=== PATIENT | male | born 1975 | race Caucasian/White ===

== ENCOUNTER 2020-09-17 06:09 | Emergency (ER) | payer OTHER, SELFPAY ==
[2020-09-17 06:25] VITALS: BP 120/84; PULSE 102; RESP 20; TEMP 37.7; O2SAT 98
[2020-09-17] MEDS: ACETAMINOPHEN 500 MG TABLET 1000 MG PO (06:35)
--- NOTE | 2020-09-17 06:38 | ED.FEVER ---
HPI - Fever General Chief Complaint: Fever Stated Complaint: chills, head pounding, boady aches, Chest hurts Source: patient Mode of arrival: ambulatory Limitations: no limitations History of Present Illness HPI Narrative: this is a 45-year-old gentleman that recently received his 2nd COVID vaccine injection and developed low-grade fever weakness chills, mild nonproductive cough no shortness of breath no nausea vomiting no headache no abdominal pain no dysuria no flank pain no chest pain or shortness of breath. MD elicited complaint: fever and weakness Onset (ago): day(s) Measured temperature: 37.7 C Context: other ( recent COVID vaccine shot) Exacerbating factors: nothing Relieving factors: acetaminophen Associated symptoms: chills and cough Related Data Home Medications Medication Instructions Recorded Confirmed bupropion HCl [Wellbutrin XL] 150 mg PO QAM 09/17/20 09/17/20 lisinopril 20 mg PO DAILY 09/17/20 09/17/20 Allergies Allergy/AdvReac Type Severity Reaction Status Date / Time No Known Allergies Allergy Verified 03/02/19 20:14 Review of Systems Review of Systems: All systems reviewed & are unremarkable except as noted in HPI and below [facility] Past Medical History Medical History (Updated 09/17/20 @ 06:44 by Jayme Dozier MD) HLD (hyperlipidemia) Exam Const: General: no acute distress and alert Orientation/consciousness: patient oriented x3 HENMT: Head: normal to inspection Eyes: Conjunctivae: conjunctivae normal Pupils: Equal, round and reactive pupils present Neck: Neck: normal visual inspection, no lymphadenopathy and no meningeal signs Chest: Chest palpation & inspection: normal inspection of the chest Resp: Effort & Inspection: normal respiratory effort Cardio: Rate: regular rate and tachycardic GI: GI Palp: Yes Soft to palpation Percussion: Yes normal to percussion Back/Spine/Pelvis: Back: no CVA tenderness Skin: General skin exam: normal color Rashes: no rashes Neuro: General: patient oriented x3, moves all extremities, no meningeal signs and no focal motor deficits Extrem: General: normal to inspection and no pedal edema Psych: Mental Status: mental status grossly normal Affect: normal affect Course COMPONENTS ENGINEER/PA Physician Supervision Patient with some fever, heart rate of 102, will add sap basis architect Tylenol and will give the patient bolus of 500mL normal saline. Vital Signs Vital signs: Vital Signs Temperature 37.7 C H 09/17/20 06:25 Pulse Rate 102 H 09/17/20 06:25 Respiratory Rate 20 09/17/20 06:25 Blood Pressure 120/84 09/17/20 06:25 Pulse Oximetry 98 09/17/20 06:25 Temperature 37.7 C H 09/17/20 06:25 Pulse Rate 102 H 09/17/20 06:25 Respiratory Rate 20 09/17/20 06:25 Blood Pressure 120/84 09/17/20 06:25 Pulse Oximetry 98 09/17/20 06:25 Critical Care Time Critical Care Time Critical Care Time: No Discharge Plan Discharge Clinical Impression: Fever and chills Patient Disposition: Home, Self-Care Condition: Stable Instructions: Antibiotic Form, Cold Symptoms (ED), Fever in Adults (ED) Additional Instructions: can take Tylenol extra-strength every 6 hours as needed for fever, drink plenty of water and follow-up with primary care physician if symptoms persist or worsen. Prescriptions: No Action lisinopril 20 mg tablet 20 mg PO DAILY RF: 0 bupropion HCl [Wellbutrin XL] 150 mg Tablet Extended Release 24 Hr 150 mg PO QAM RF: 0 Follow-up/Referrals: Nidia Meek MD [Primary Care Provider] - Time of Disposition: 06:44
[2020-09-17] MEDS: SODIUM CHLORIDE 0.9% IV 500 ML 999 ML IV CONT (06:43)
[2020-09-17 06:52] VITALS: TEMP 37.3
[2020-09-17 07:01] VITALS: BP 118/78; PULSE 87; RESP 20; TEMP 37.3; O2SAT 98
== END 2020-09-17 07:03 | disposition home or self-care (01) ==
PROVIDERS: Emergency Provider Emergency Medicine; PCP Family Medicine
DX: R50.9 Fever, unspecified (principal)
CPT/HCPCS: 99282; 99283; J7040

== ENCOUNTER 2021-11-03 06:36 | Emergency (ER) | payer OTHER, SELFPAY ==
--- NOTE | ~2021-11-03 | CT_ITS ---
EXAMINATION: CT abdomen pelvis wo con DATE: 11/03/2021 08:05 INDICATION: Left lower quadrant pain. Left testicular pain. TECHNIQUE: Computed tomography (CT) of the abdomen and pelvis was performed without intravenous contr ast. The dose-length product was 510.73 mGy-cm. Automated exposure control and iterative reconstructi on technique were employed. COMPARISON: CT dated 02/20/2018 FINDINGS: Left lower lobe atelectasis. Heart size normal. No significant pleural or pericardial effus ion. No significant vascular abnormality. No lymphadenopathy. The liver, spleen, pancreas, adrenal glands are unremarkable. There are punctate 1 mm nonobstructing right renal stones. There are multiple left renal stones, largest in the lower pole of the left kidne y measuring 4 mm. There is dilation of the left renal pelvis, although no ureteral stones are identif ied. There is mild left perinephric and proximal periureteral edema. Bladder wall is mildly thickened , although not well distended. Nonobstructing bowel gas pattern. Small fat-containing umbilical hernia. 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 No free air or free fluid. No evidence for ingu inal hernia. No lymphadenopathy. Gallbladder is present. IMPRESSION: 1. Mild bladder wall thickening which may be due to underdistention, although cystitis not excluded. Mild proximal left ureteral and perinephric edema. Cannot exclude ascending urinary tract infection. 2: Mild dilation of the left renal pelvis, possibly normal variant. 3: Nonobstructing bilateral nephrolithiasis. Reviewed, dictated and finalized at location A. IMPRESSION: 1. Mild bladder wall thickening which may be due to underdistention, although c ystitis not excluded. Mild proximal left ureteral and perinephric edema. Cannot exclude ascending urinary tract infection. 2: Mild dilation of the left renal pelvis, possibly normal variant. 3: Nonobstructing bilateral nephrolithiasis.
[2021-11-03 06:54] VITALS: BP 124/93; PULSE 88; RESP 22; TEMP 36.4; O2SAT 95
[2021-11-03] MEDS: SODIUM CHLORIDE 0.9% IV 1,000 ML 999 ML IV CONT (07:31)
[2021-11-03 07:53] LABS: Add Urine Microscopic? YES; Appearance Urine Clear (Clear); Basophils Absolute Auto 0.07 K/mm3 (0.00-0.10); Basophils Percent Auto 0.6 % (0.0-1.0); Bilirubin Urine Negative (Negative); Blood Urine 1+ (Negative); Color Urine Yellow (Yellow); Eosinophils Absolute Auto 0.18 K/mm3 (0.02-0.50); Eosinophils Percent Auto 1.5 % (1.0-6.0); Glucose Urine UA Negative (Negative); Hematocrit 44.7 % (40.0-54.0); Hemoglobin 15.3 g/dL (14.0-18.0); Immature Granulocyte Absolute 0.14 K/mm3 (0.00-0.00); Immature Granulocyte Percent A 1.2 % (0.0-0.0); Ketones Urine Negative (Negative); Leukocyte Esterase Ur Negative (Negative); Lymphocytes Percent Auto 17.6 % (18.0-42.0); Mean Corpuscular HGB Conc 34.2 g/dL (32.0-36.0); Mean Corpuscular Hemoglobin 31.8 pg (27.0-31.0); Mean Corpuscular Volume 92.9 fL (78.0-102.0); Mean Platelet Volume 9.6 fl (8.7-11.0); Monocytes Absolute Auto 0.85 K/mm3 (0.10-0.90); Monocytes Percent Auto 7.1 % (2.0-11.0); Neutrophils Absolute Auto 8.6 K/mm3 (1.7-7.2); Nitrate Urine Negative (Negative); Platelet Count Result 250 K/mm3 (150-420); Protein Urine Negative (Negative); Red Blood Count 4.81 M/mm3 (4.70-6.10); Urobilinogen Urine 0.2 mg/dL (0.2-1.0); White Blood Count 11.9 K/mm3 (4.8-10.8)
[2021-11-03 07:58] LABS: Bacteria Urine Trace /hpf; RBC Urine 0-2 /hpf (0-2); Squamous Epithelial Cell Urine Occasional /hpf (Few); WBC Urine None seen /hpf (0-3)
[2021-11-03 08:08] LABS: Alanine Aminotransferase 35 U/L (16-63); Albumin Level 3.9 g/dL (3.4-5.0); Alkaline Phosphatase 55 U/L (46-116); Anion Gap 9 mmol/L (8-16); Aspartate Amino Transferase 22 U/L (15-37); Bilirubin,Total 0.5 mg/dL (0.00-1.00); Blood Urea Nitrogen 22 mg/dL (7-18); Calcium 8.8 mg/dL (8.5-10.1); Carbon Dioxide 25 mmol/L (21-32); Chloride 102 mmol/L (98-108); Estimated CRCL calculation 85 ml/min; Estimated Glomerular Filt Rate > 60; Glucose 123 mg/dL (70-99); Osmolality Calculated 286 mOsm/kg (285-295); Potassium 3.6 mmol/L (3.5-5.1); Sodium 136 mmol/L (136-145)
--- NOTE | 2021-11-03 08:26 | ED.ABDPAIN ---
HPI - Abdominal Pain General Chief Complaint: Abdominal Pain Stated Complaint: L side pain Source: patient Mode of arrival: ambulatory Limitations: no limitations History of Present Illness HPI narrative: this is a 46-year-old gentleman that presents with some left lower quadrant pain and radiating into his left groin area patient has a history of kidney stones his pain is about a 5/10 that started earlier this morning patient did take some ibuprofen that did help with his pain and discomfort, currently there is no fever chills no diarrhea constipation no nausea vomiting. There is no dysuria or hematuria. MD elicited complaint: abdominal pain Pertinent past history: kidney stones Onset (ago): hour(s) Pain Consistency: intermittent Location: LLQ and groin Severity: mild Pain scale (0-10): 5 Quality: aching Related Data Home Medications Medication Instructions Recorded Confirmed bupropion HCl 150 mg 24 hr tablet, 150 mg PO QAM 09/17/20 11/03/21 extended release (Wellbutrin XL) famotidine 40 mg tablet 40 mg PO DAILY 11/03/21 11/03/21 pantoprazole 40 mg tablet,delayed 40 mg PO DAILY 11/03/21 11/03/21 release rosuvastatin 10 mg tablet 10 mg PO DAILY 11/03/21 11/03/21 valsartan 80 1 tablet PO DAILY 11/03/21 11/03/21 mg-hydrochlorothiazide 12.5 mg tablet Allergies Allergy/AdvReac Type Severity Reaction Status Date / Time No Known Allergies Allergy Verified 11/03/21 06:51 Review of Systems Review of Systems: All systems reviewed & are unremarkable except as noted in HPI and below [facility] Past Medical History Medical History (Updated 11/03/21 @ 08:31 by Jayme Dozier MD) HLD (hyperlipidemia) Exam Const: General: healthy appearing and no acute distress Nutritional Appearance: well nourished Orientation/consciousness: patient oriented x3 Limitations: no limitations HENMT: Head: normal to inspection Face and sinus: normal facial exam Eyes: Conjunctivae: conjunctivae normal Pupils: Equal, round and reactive pupils present Neck: Neck: normal visual inspection Chest: Chest palpation & inspection: normal inspection of the chest Resp: Effort & Inspection: normal respiratory effort Auscultation: clear to auscultation bilaterally Cardio: Rate: regular rate Rhythm: regular rhythm GI: GI Palp: Yes Soft to palpation and Yes Tenderness to palpation present (GI) Auscultation: normal bowel sounds Urinary Catheter: Urinary Catheter: patent and draining Back/Spine/Pelvis: Back: no CVA tenderness Skin: General skin exam: normal color Rashes: no rashes Wounds: no wounds Neuro: General: patient oriented x3 Extrem: General: normal to inspection, no clubbing, cyanosis or edema and no pedal edema Psych: Mental Status: mental status grossly normal Affect: normal affect Course Course Emergency Course: Patient pain level about a 3/10 after he took ibuprofen earlier prior to arrival to emergency department, CT scan reviewed with patient which shows a 4mm kidney stone nonobstructing, ceftriaxone 1g IV was administered labs reviewed with patient. Vital Signs Vital signs: Vital Signs Temperature 36.4 C L 11/03/21 06:54 Pulse Rate 88 11/03/21 06:54 Respiratory Rate 22 H 11/03/21 06:54 Blood Pressure 124/93 H 11/03/21 06:54 Pulse Oximetry 95 11/03/21 06:54 Oxygen Delivery Room Air 11/03/21 06:54 Temperature 36.4 C L 11/03/21 06:54 Pulse Rate 88 11/03/21 06:54 Respiratory Rate 22 H 11/03/21 06:54 Blood Pressure 124/93 H 11/03/21 06:54 Pulse Oximetry 95 11/03/21 06:54 Oxygen Delivery Room Air 11/03/21 06:54 MDM - Abdominal Pain Lab Data Result diagrams: 11/03/21 07:43 11/03/21 07:44 Labs: Lab Results 11/03/21 11/03/21 11/03/21 Range/Units 07:43 07:43 07:44 WBC 11.9 H (4.8-10.8) K/mm3 RBC 4.81 (4.70-6.10) M/mm3 Hgb 15.3 (14.0-18.0) g/dL Hct 44.7 (40.0-54.0) % MCV 92.9 (78.0-102.0) fL M
[2021-11-03 08:55] VITALS: BP 142/76; PULSE 82; RESP 18; O2SAT 97
== END 2021-11-03 08:59 | disposition home or self-care (01) ==
PROVIDERS: Emergency Provider Emergency Medicine; PCP Family Medicine
DX: N20.0 Calculus of kidney (principal); N30.00 Acute cystitis without hematuria
CPT/HCPCS: 36415; 74176; 80053; 81001; 85025; 96361; 96365; 99284; J0696; J7030

== ENCOUNTER 2022-02-07 13:09 | Emergency (ER) | payer OTHER, SELFPAY ==
--- NOTE | ~2022-02-07 | CT_ITS ---
EXAMINATION: CT abdomen pelvis wo con DATE: 02/07/2022 15:52 INDICATION: left flank pain TECHNIQUE: Computed tomography (CT) of the abdomen and pelvis was performed without intravenous contr ast. Automated exposure control and iterative reconstruction technique were employed. The dose-length product was 844.47 mGy-cm. COMPARISON: 11/03/21. FINDINGS: Lower thorax: Dependant atelectasis. Small hiatal hernia. Liver: Normal. Biliary/Gallbladder: Gallbladder is partially contracted. No bile duct dilation. Pancreas: No mass or duct dilation. Spleen: Normal. Adrenals:No mass. Kidneys: No suspicious mass. Bilateral nonobstructive punctate midpole calculi. Nonobstructive 7mm le ft lower pole calculus. Moderate left perinephric stranding and hydronephrosis. GI tract: No small or large bowel dilation. Normal appendix. Mesentery/Peritoneum: No ascites, mass, or free air. Retroperitoneum: No mass. Pelvis: Urinary bladder wall thickening. 4 mm distal left ureteral stone, just proximal to the left U VJ. Remaining pelvic organs are within normal limits. Soft Tissues: Soft tissues and body wall unremarkable. Bones: No acute osseous finding. IMPRESSION: 4 mm distal left ureteral stone causing moderate obstructive uropathy. Possible cystitis. Bilateral n ephrolithiasis. Reviewed, dictated and finalized at location K. [place] LOAN ORIGINATOR ASSISTANT IMPRESSION: 4 mm distal left ureteral stone causing moderate obstructive uropathy. Possible cystitis. Bilateral nephrolithiasis.
[2022-02-07 13:12] VITALS: BP 155/102; PULSE 85; RESP 18; TEMP 36.1; O2SAT 98
--- NOTE | 2022-02-07 13:31 | ED.ABDPAIN ---
HPI - Abdominal Pain General Chief Complaint: Abdominal Pain Stated Complaint: low abd pain Time Seen by Provider: 02/07/22 13:30 Source: patient Mode of arrival: ambulatory Limitations: no limitations History of Present Illness HPI narrative: 46-year-old male with a history of hypertension, dyslipidemia, kidney stones presents to the ER with -- left iliac pain radiating to the left testicle. Pain is continuous. No exacerbating or relieving factors. No fever or chills. No constipation. No nausea/ vomiting. MD elicited complaint: abdominal pain Pertinent past history: kidney stones Onset (ago): hour(s) ( Started 6 hours ago) Pain Consistency: constant Location: RLQ Severity: moderate Quality: cramping Radiation: other ( radiates to left testicle) Exacerbating factors: nothing Relieving factors: nothing Associated symptoms: denies other symptoms Related Data Home Medications Medication Instructions Recorded Confirmed bupropion HCl 150 mg 24 hr tablet, 150 mg PO QAM 09/17/20 02/07/22 extended release (Wellbutrin XL) famotidine 40 mg tablet 40 mg PO DAILY 11/03/21 02/07/22 pantoprazole 40 mg tablet,delayed 40 mg PO DAILY 11/03/21 02/07/22 release rosuvastatin 10 mg tablet 10 mg PO DAILY 11/03/21 02/07/22 valsartan 80 1 tablet PO DAILY 11/03/21 02/07/22 mg-hydrochlorothiazide 12.5 mg tablet Allergies Allergy/AdvReac Type Severity Reaction Status Date / Time No Known Allergies Allergy Verified 02/07/22 13:26 Review of Systems Review of Systems: All systems reviewed & are unremarkable except as noted in HPI and below Constitutional: Constitutional: Reports as per HPI and Reports no additional constitutional complaints Eyes: Eyes: Reports as per HPI and Reports no additional eye complaints ENT: Reports system reviewed and no additional complaints, except as documented and Reports as per HPI Cardiovascular: Cardiovascular: Reports as per HPI and Reports no additional cardiovascular complaints Respiratory: Respiratory: Reports as per HPI and Reports no additional respiratory complaints Gastrointestinal: Gastrointestinal: Reports as per HPI, Reports no additional gastrointestinal complaints and Reports abdominal pain Genitourinary: Genitourinary: Reports no additional male genitourinary complaints and Reports as per HPI Musculoskeletal: Musculoskeletal: Reports no additional musculoskeletal complaints and Reports as per HPI Integumentary/Breasts: Skin/Breast: Reports system reviewed and no additional complaints, except as docu and Reports as per HPI Neurologic: Reports system reviewed and no additional complaints, except as documented and Reports as per HPI Psychiatric: Psychiatric: Reports no additional psychiatric complaints and Reports as per HPI Endocrine: Endocrine: Reports no additional endocrine complaints and Reports as per HPI Hematologic/Lymphatic: Hematologic/Lymphatic: Reports no additional hematologic/lymphatic complaints and Reports as per HPI Allergic/Immunologic: Allergic/Immunologic: Reports no additional allergic/immunologic complaints and Reports as per HPI [facility] Past Medical History Medical History (Updated 02/07/22 @ 16:30 by Edgardo Gómez MD) HLD (hyperlipidemia) Exam Const: General: healthy appearing and no acute distress Nutritional Appearance: well nourished Orientation/consciousness: patient oriented x3 Limitations: no limitations HENMT: Head: normal to inspection Ears: external ears normal Face/Nose/Sinus: Normal external nose present Face and sinus: normal facial exam Mouth: Yes Normal oral and palatal mucosa present Throat: posterior oropharynx normal Eyes: Conjunctivae: conjunctivae normal Pupils: Equal, round and reactive pupils present EOM: EOMs intact bilaterally Direct Ophthalmoscopy: no photophobia Neck: Neck: normal visual inspection, no lymphadenopathy and no meningeal signs Chest: Chest palpation & inspection: normal inspection of
[2022-02-07] MEDS: ONDANSETRON INJ 4 MG/2 ML VIAL IV PUSH (13:54)
[2022-02-07] MEDS: LACTATED RINGERS 1,000 ML 999 ML IV CONT (13:54)
[2022-02-07] MEDS: HYDROmorphone HCL INJ (*CRX) 2 MG/ML VIAL 0.5 MG IV PUSH (13:56)
[2022-02-07 14:03] LABS: Basophils Absolute Auto 0.08 K/mm3 (0.00-0.10); Basophils Percent Auto 0.5 % (0.0-1.0); Eosinophils Absolute Auto 0.06 K/mm3 (0.02-0.50); Eosinophils Percent Auto 0.4 % (1.0-6.0); Hematocrit 46.7 % (40.0-54.0); Hemoglobin 16.3 g/dL (14.0-18.0); Immature Granulocyte Absolute 0.09 K/mm3 (0.00-0.00); Immature Granulocyte Percent A 0.5 % (0.0-0.0); Lymphocytes Absolute Auto 1.26 K/mm3 (1.10-4.50); Lymphocytes Percent Auto 7.5 % (18.0-42.0); Mean Corpuscular HGB Conc 34.9 g/dL (32.0-36.0); Mean Corpuscular Hemoglobin 32.5 pg (27.0-31.0); Mean Corpuscular Volume 93.2 fL (78.0-102.0); Mean Platelet Volume 9.8 fl (8.7-11.0); Monocytes Absolute Auto 0.94 K/mm3 (0.10-0.90); Monocytes Percent Auto 5.6 % (2.0-11.0); Neutrophils Absolute Auto 14.3 K/mm3 (1.7-7.2); Neutrophils Percent Auto 85.5 % (50.0-70.0); Platelet Count Result 244 K/mm3 (150-420); Red Blood Count 5.01 M/mm3 (4.70-6.10); Red Cell Distribution Width 12.1 % (11.6-14.4); White Blood Count 16.7 K/mm3 (4.8-10.8)
--- NOTE | 2022-02-07 14:16 | PC.NURSE ---
PT IS MORE RELAXED AT THIS TIME. PT REPORTS PAIN HAS IMPROVED, STATES IT IS NO LONGER IN HIS ABD, HOWEVER REMAINS IN TESTICLE. PT IS AWARE OF NEED FOR URINE SPECIMEN. IVF INFUSING ORDERED WITHOUT DIFFICULTY. WILL CONTINUE TO MONITOR.
[2022-02-07 14:17] VITALS: BP 148/96; PULSE 80; RESP 14; O2SAT 94
[2022-02-07 14:38] LABS: Alanine Aminotransferase 37 U/L (16-63); Albumin Level 4.3 g/dL (3.4-5.0); Alkaline Phosphatase 58 U/L (46-116); Anion Gap 13 mmol/L (8-16); Aspartate Amino Transferase 24 U/L (15-37); Bilirubin,Total 0.4 mg/dL (0.00-1.00); Blood Urea Nitrogen 22 mg/dL (7-18); Calcium 8.9 mg/dL (8.5-10.1); Carbon Dioxide 24 mmol/L (21-32); Chloride 104 mmol/L (98-108); Estimated CRCL calculation 84 ml/min; Estimated Glomerular Filt Rate > 60; Glucose 119 mg/dL (70-99); Lipase 199 U/L (73-393); Osmolality Calculated 296 mOsm/kg (285-295); Potassium 3.6 mmol/L (3.5-5.1); Sodium 141 mmol/L (136-145); Total Protein 7.7 g/dL (6.4-8.2)
[2022-02-07 14:56] LABS: Appearance Urine Clear (Clear); Bilirubin Urine Negative (Negative); Blood Urine 3+ (Negative); Glucose Urine UA Negative (Negative); Ketones Urine Negative (Negative); Leukocyte Esterase Ur Negative LEU/UL (Negative); Nitrate Urine Negative (Negative); Protein Urine Negative (Negative); Specific Grav Ur >= 1.030 (1.010-1.020); Urobilinogen Urine 0.2 mg/dL (0.2-1.0)
[2022-02-07] MEDS: SODIUM CHLORIDE 0.9% IV 1,000 ML 999 ML IV CONT (14:56)
--- NOTE | 2022-02-07 14:57 | PC.NURSE ---
pt reports pain returns, erp is aware. to await orders.
[2022-02-07 15:16] LABS: Add Urine Microscopic? YES; Bacteria Urine 1+ /hpf; Color Urine Light Yellow (Yellow); Squamous Epithelial Cell Urine Few /hpf (Few); WBC Urine None seen /hpf (0-3)
[2022-02-07] MEDS: KETOROLAC 30 MG/ML VIAL (*BKC) IV PUSH (15:29)
--- NOTE | 2022-02-07 15:40 | PC.NURSE ---
PT IN CT AT THIS TIME
[2022-02-07] MEDS: TAMSULOSIN HCL 0.4 MG CAPSULE PO (16:46)
--- NOTE | 2022-02-07 16:52 | PC.NURSE ---
strainer, urinal and specimen container provided to pt. lists of urologist provided. pt ambulatory without difficulty. a & o x4.
[2022-02-07 16:53] VITALS: BP 140/97; PULSE 88; RESP 18; TEMP 36.6; O2SAT 99
== END 2022-02-07 16:59 | disposition home or self-care (01) ==
PROVIDERS: Emergency Provider Internal Medicine Critical Care Medicine; PCP Family Medicine
DX: N20.1 Calculus of ureter (principal)
CPT/HCPCS: 36415; 74176; 80053; 81001; 83690; 85025; 96361; 96374; 96375; 99284; A9270; J1170; J1885; J2405; J7030; J7120

== ENCOUNTER 2023-01-12 08:00 | Emergency (ER) | payer SELFPAY ==
[2023-01-12 08:14] VITALS: BP 153/100; PULSE 100; RESP 20; TEMP 36.7; O2SAT 93
--- NOTE | 2023-01-12 08:19 | ED.NAVMDI ---
HPI - Nausea/Vomiting/Diarrhea General Chief complaint: Upper Respiratory Infection Stated complaint: n/v Time Seen by Provider: 01/12/23 08:06 Source: patient Mode of arrival: ambulatory Limitations: no limitations History of Present Illness HPI Narrative: Patient is a 47-year-old male with nausea vomiting. He has associated upper respiratory complaints with chills. He has been sick for 3 days. MD elicited complaint: nausea and vomiting Onset (ago): day(s) (3) Description of vomiting: watery Associated nausea: Yes Associated abdominal pain: No Location of pain: none Severity: moderate ( Not feeling well) Pain scale (0-10): 5 Exacerbating factors: none Relieving factors: none Associated symptoms: myalgias, fever/chills, malaise and nausea/vomiting Related Data Home Medications Medication Instructions Recorded Confirmed rosuvastatin 10 mg tablet 10 mg PO DAILY 11/03/21 01/12/23 valsartan 80 1 tablet PO DAILY 11/03/21 01/12/23 mg-hydrochlorothiazide 12.5 mg tablet Allergies Allergy/AdvReac Type Severity Reaction Status Date / Time No Known Allergies Allergy Verified 01/12/23 08:22 Review of Systems Review of Systems: All systems reviewed & are unremarkable except as noted in HPI and below Constitutional: Constitutional: Reports no additional constitutional complaints Eyes: Eyes: Reports no additional eye complaints ENT: Reports system reviewed and no additional complaints, except as documented Cardiovascular: Cardiovascular: Reports no additional cardiovascular complaints Respiratory: Respiratory: Reports no additional respiratory complaints Gastrointestinal: Gastrointestinal: Reports no additional gastrointestinal complaints Genitourinary: Genitourinary: Reports no additional male genitourinary complaints Musculoskeletal: Musculoskeletal: Reports no additional musculoskeletal complaints Integumentary/Breasts: Skin/Breast: Reports system reviewed and no additional complaints, except as docu Neurologic: Reports system reviewed and no additional complaints, except as documented Psychiatric: Psychiatric: Reports no additional psychiatric complaints Endocrine: Endocrine: Reports no additional endocrine complaints Hematologic/Lymphatic: Hematologic/Lymphatic: Reports no additional hematologic/lymphatic complaints Allergic/Immunologic: Allergic/Immunologic: Reports no additional allergic/immunologic complaints [facility] Past Medical History Medical History (Updated 01/12/23 @ 09:08 by Flakito Yeung MD) HLD (hyperlipidemia) Family History Family History Mother Family history of type 2 diabetes mellitus Social History Social History Smoking status: Never smoker Exam Const: General: ill appearing Nutritional Appearance: well nourished Orientation/consciousness: patient oriented x3 HENMT: Head: normal to inspection Ears: external ears normal Face/Nose/Sinus: Normal external nose present Eyes: Conjunctivae: conjunctivae normal Cornea: corneas normal Pupils: Equal, round and reactive pupils present Neck: Neck: normal visual inspection Chest: Chest palpation & inspection: normal inspection of the chest Resp: Effort & Inspection: normal respiratory effort Auscultation: clear to auscultation bilaterally, no crackles and no rales Cardio: Rate: regular rate Rhythm: regular rhythm Heart sounds: no murmurs GI: Inspection: non-distended GI Palp: Yes Soft to palpation, No Tenderness to palpation present (GI), No Guarding due to palpation present (GI) and No Rigid due to palpation Auscultation: normal bowel sounds : General: Yes bladder normal to palpation Back/Spine/Pelvis: Back: no CVA tenderness Skin: General skin exam: normal color Rashes: no rashes Wounds: no wounds Neuro: General: patient oriented x3 Cranial nerves: Yes Nystagmus not present Speech:
[2023-01-12 08:21] VITALS: O2SAT 93
[2023-01-12 08:52] LABS: Influenza A QL RT-PCR Negative (Negative); Influenza B QL RT-PCR Negative (Negative); SARS-CoV-2 RNA PCR Negative (Negative)
[2023-01-12 08:53] LABS: RSV RNA, RT-PCR Negative (Negative)
[2023-01-12 09:09] LABS: Basophils Absolute Auto 0.06 K/mm3 (0.00-0.10); Basophils Percent Auto 0.7 % (0.0-1.0); Eosinophils Absolute Auto 0.21 K/mm3 (0.02-0.50); Eosinophils Percent Auto 2.4 % (1.0-6.0); Hematocrit 46.3 % (40.0-54.0); Hemoglobin 15.6 g/dL (14.0-18.0); Immature Granulocyte Absolute 0.04 K/mm3 (0.00-0.00); Immature Granulocyte Percent A 0.5 % (0.0-0.0); Lymphocytes Absolute Auto 2.29 K/mm3 (1.10-4.50); Lymphocytes Percent Auto 26.2 % (18.0-42.0); Mean Corpuscular HGB Conc 33.7 g/dL (32.0-36.0); Mean Corpuscular Volume 95.1 fL (78.0-102.0); Mean Platelet Volume 9.7 fl (8.7-11.0); Monocytes Absolute Auto 0.57 K/mm3 (0.10-0.90); Monocytes Percent Auto 6.5 % (2.0-11.0); Neutrophils Absolute Auto 5.6 K/mm3 (1.7-7.2); Neutrophils Percent Auto 63.7 % (50.0-70.0); Platelet Count Result 238 K/mm3 (150-420); Red Blood Count 4.87 M/mm3 (4.70-6.10); Red Cell Distribution Width 12.4 % (11.6-14.4); White Blood Count 8.7 K/mm3 (4.8-10.8)
[2023-01-12 09:24] LABS: Alanine Aminotransferase 26 U/L (16-63); Albumin Level 3.7 g/dL (3.4-5.0); Alkaline Phosphatase 51 U/L (46-116); Anion Gap 10 mmol/L (8-16); Aspartate Amino Transferase 11 U/L (15-37); Bilirubin,Total 0.5 mg/dL (0.00-1.00); Blood Urea Nitrogen 19 mg/dL (7-18); Calcium 9.2 mg/dL (8.5-10.1); Carbon Dioxide 26 mmol/L (21-32); Chloride 105 mmol/L (98-108); Estimated CRCL calculation 112 ml/min; Estimated Glomerular Filt Rate > 60; Glucose 108 mg/dL (70-99); Lipase 61 U/L (16-77); Osmolality Calculated 295 mOsm/kg (285-295); Potassium 4.1 mmol/L (3.5-5.1); Sodium 141 mmol/L (136-145); Total Protein 6.8 g/dL (6.4-8.2)
[2023-01-12 10:02] VITALS: BP 139/101; PULSE 90; RESP 20; TEMP 36.9; O2SAT 95
== END 2023-01-12 10:13 | disposition home or self-care (01) ==
PROVIDERS: Emergency Provider Emergency Medicine
DX: B34.9 Viral infection, unspecified (principal); E78.5 Hyperlipidemia, unspecified; Z20.822 Contact with and (suspected) exposure to COVID-19
CPT/HCPCS: 36415; 80053; 83690; 85025; 87637; 99283

== ENCOUNTER 2023-07-04 16:51 | Outpatient (CLI) | payer OTHER, SELFPAY ==
--- NOTE | ~2023-07-04 | XR_ITS ---
EXAMINATION: XR knee LT min 4V DATE: 07/04/2023 17:13 INDICATION: Left knee pain. TECHNIQUE: 4 views of left knee were obtained. COMPARISON: None. FINDINGS: Bone alignment is normal. No fracture. There is mild osteoarthritis of medial compartment. No knee joint effusion. IMPRESSION: 1. Mild left knee osteoarthritis. Reviewed, dictated and finalized at location E.
== END 2023-07-04 16:52 | disposition home or self-care (01) ==
PROVIDERS: PCP Internal Medicine; Visit Provider Internal Medicine
DX: M16.12 Unilateral primary osteoarthritis, left hip (principal); M25.562 Pain in left knee
CPT/HCPCS: 73564

== ENCOUNTER 2024-04-30 06:14 | Emergency (ER) | payer SELFPAY ==
--- NOTE | ~2024-04-30 | XR_ITS ---
Portable chest x-ray Comparison: 05/23/2014 Clinical History: Cough, chest congestion Findings: Lungs are clear, without focal consolidation or pleural effusion. Cardiomediastinal silho uette is stable. Bones and soft tissues are unremarkable. Impression: Clear lungs. Reviewed, dictated and finalized at location . N [facility] Impression: Clear lungs.
[2024-04-30 06:14] VITALS: BP 146/99; PULSE 103; RESP 18; TEMP 36.4; O2SAT 97
--- OUTSIDE RECORDS SUMMARY | 2024-04-30 06:16 | XMS_ITS | Clinical Summary ---
Author Organization [facility] Address [address] [place] [id number] Care Team Providers Care Logistical Engineer Name Role Phone Nidia Meek MD Primary Care Provider [phone] Social History Tobacco Use Types Packs/Day Years Used Date Smoking Tobacco: Never Assessed Sex and Gender Information Value Date Recorded Sex Assigned at Not on file Legal Sex Male 10:54 PM CDT Gender Identity Not on file Sexual Orientation Not on file Plan of Treatment Health Maintenance Due Date Last Done Comments Colorectal Cancer Screening Colonoscopy (10 Years) 1975 Annual Physical 05/25/1978 Hepatitis C 05/25/1993 DTaP, Tdap and Td Vaccines (1 - Tdap) 05/25/1994 11/20/1980, 10/24/1977, 08/05/1976, Additional history exists Hepatitis B Vaccines (1 of 3 - 19+ 3-dose series) 05/25/1994 COVID-19 Vaccine ( - season) 2023 Influenza Adult (#1) 2023 Meningococcal B Vaccine Aged Out No l onger eligible based on patient's age to complete this topic Meningococcal Vaccine Aged Out No keshia leena eligible based on patient's age to complete this topic Pneumococcal Vaccine: Pediatrics (0 to 5 Years) and At-Risk Patients (6 to 64 Years) Aged Out No longer eligible based on patient's age to complete this topic RSV Immunizations Under 20 Months Aged Out No longer eligible based on patient's age to complete this topic Insurance [employer] Care Teams Logistical Engineer Relationship Specialty Start Date End Date Nidia Meek MD [address] [place] [id number] PCP - General FAMILY PRACTICE 01/27/20
--- OUTSIDE RECORDS SUMMARY | 2024-04-30 06:16 | XMS_ITS | Clinical Summary ---
Author Organization [facility] [address] [place] Address [address] [place] [id number] Care Team Providers Care Bracelet Former Name Role Phone Unknown, Notinfile Primary Care Provider Unavail able Allergies Active Allergy Reactions Criticality Noted Date Comments Lisinopril Unknown 04/17/2022 Medications buPROPion (WELLBUTRIN) 100 mg tablet Take 1 tablet (100 mg total) by mouth 2 (two) times a day Active famotidine (PEPCID) 40 mg tablet Take 1 tablet (40 mg total) by mouth daily Active pantoprazole DR (PROTONIX) 40 mg EC tablet Take 1 tablet (40 mg total) by mouth Active rosuvastatin (CRESTOR) 10 mg tablet Take 1 tablet (10 mg total) by mouth daily Active tamsulosin (FLOMAX) 0.4 mg extended release capsule Take 1 capsule (0.4 mg total) by mouth daily Active valsartan-hydro CHLOROthiazide (DIOVAN-HCT) 80-12.5 mg per tablet Take 1 tablet by mouth daily Active Active Problems Problem Noted Date Diagnosed Date Essential hypertension 04/19/2022 Hyperlipidemia 04/19/2022 Social History Tobacco Use Types Packs/Day Years Used Date Smoking Tobacco: Never Assessed Personal Safety Answer Date Recorded Getting School Help Needed Not on file 03/29 Sex and Gender Information Value Date Recorded Sex Assigned at Not on file Legal Sex Male 6:11 AM SUPERVISORY GEOGRAPHER Gender Identity Not on file Sexual Orientation Not on file Last Filed Vital Signs Vital Sign Reading Time Taken Comments Blood Pressure 114/64 03/29/2023 12:21 PM SUPERVISORY GEOGRAPHER Pulse 90 03/29/2023 12:21 PM SUPERVISORY GEOGRAPHER Temperature 36.9 C (98.4 F) 03/29/2023 12:21 PM SUPERVISORY GEOGRAPHER Respiratory Rate 20 03/29/2023 12:21 PM SUPERVISORY GEOGRAPHER Oxygen Saturation 96% 03/29/2023 12:21 PM SUPERVISORY GEOGRAPHER Inhaled Oxygen Concentration - - Weight 96.6 kg (213 lb) 03/29/2023 12:21 PM SUPERVISORY GEOGRAPHER Height 182.9 cm (6') 03/29/2023 12:21 PM SUPERVISORY GEOGRAPHER Body Mass Index 28.89 03/29/2023 12:21 PM SUPERVISORY GEOGRAPHER Plan of Treatment Health Maintenance Due Date Last Done Comments Colon Cancer Screening-Colonoscopy 1975 Depression Screening 1975 Hepatitis C Screening 1975 Hepatitis B Screening 05/25/1993 Regular Well Visit/Exam 18-64 05/25/1993 DTaP/Tdap/Td Vaccine (6 - Td or Tdap) 12/26/2022 12/26/2012, 10/10/1990, 11/20/1980, Additional history exists Covid-19 Vaccine ( season) 2023 09/16/2020, 08/16/2020 Influenza Vaccine (#1) 2023 Pneumococcal vaccine <65 Aged Out No longer eligible based on patient's age to complete this topic Care Teams Bracelet Former Relationship Specialty Start Date End Date Unknown, Notinfile PCP - General 03/29/23
--- OUTSIDE RECORDS SUMMARY | 2024-04-30 06:16 | XMS_ITS | Encounter Summary ---
Author Organization [facility] Address [facility] [place] [address] Care Team Providers Care Sales Support Assistant Name Role Phone Nidia Meek MD Primary Care Provider [phone] Encounter Details Date Type Department Care Team (Late st Contact Info) Description 08/17/2018 Abstract SFL CONVERSION [address] [place] [address] , Generic Conversion, Social History Tobacco Use Types Packs/Day Years Used Date Smoking Tobacco: Never Assessed Sex and Gender Information Value Date Recorded Sex Assigned at Not on file Legal Sex Male 10:54 PM CDT Gender Identity Not on file Sexual Orientation Not on file documented as of this encounter Plan of Treatment Not on file documented as of this encounter Visit Diagnoses Not on filedocumented in this encounter Care Teams Sales Support Assistant Relationship Specialty Start Date End Date Nidia Meek MD [address] [place] [id number] PCP - General FAMILY PRACTICE 01/27/20 documented as of this encounter
--- OUTSIDE RECORDS SUMMARY | 2024-04-30 06:16 | XMS_ITS | Referral Summary ---
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 Gender Identity Not on file Sexual Orientation Not on file Last Filed Vital Signs Vital Sign Reading Time Taken Comments Blood Pressure 114/64 03/29/2023 12:21 PM POOL ATTENDANT Pulse 90 03/29/2023 12:21 PM POOL ATTENDANT Temperature 36.9 C (98.4 F) 03/29/2023 12:21 PM POOL ATTENDANT Respiratory Rate 20 03/29/2023 12:21 PM POOL ATTENDANT Oxygen Saturation 96% 03/29/2023 12:21 PM POOL ATTENDANT Inhaled Oxygen Concentration - - Weight 96.6 kg (213 lb) 03/29/2023 12:21 PM POOL ATTENDANT Height 182.9 cm (6') 03/29/2023 12:21 PM POOL ATTENDANT Body Mass Index 28.89 03/29/2023 12:21 PM POOL ATTENDANT Plan of Treatment Not on file Care Teams Substation Technician Relationship Specialty Start Date End Date Unknown, Notinfile PCP - General 03/29/23
--- OUTSIDE RECORDS SUMMARY | 2024-04-30 06:16 | XMS_ITS | Clinical Summary ---
Author Organization [facility] Address [address] [place] [id number] Phone Care Team Providers Care Homogenizer Operator Name Role Phone Nidia Meek MD Primary Care Provider Unav ailable Allergies Active Allergy Reactions Criticality Noted Date Comments Lisinopril 04/17/2022 Medications Medication Sig Dispensed Refills Start Date End Date Status valsartan-hydroCHLORO thiazide (DIOVAN-HCT) 80-12.5 MG per tablet Take 1 tablet by mouth 1 (one) time each day Active buPROPion (WELLBUTRIN) 100 MG tablet Take 100 mg by mouth in the morning and 100 mg in the evening. Active famotidine (PEPCID) 40 MG tablet Take 40 mg by mouth in the morning. Active rosuvastatin (CRESTOR) 10 MG tablet Take 10 mg by mouth 1 (one) time each day Active pantoprazole (PROTONIX) 40 MG EC tablet Take 40 mg by mouth 1 (one) time each day before breakfast Active Sildenafil Citrate (VIAGRA PO) Take 20 mg by mouth 1 (one) time each day if needed Active tamsulosin (Flomax) 0.4 MG 24 hr capsule Take 0.4 mg by mouth 1 (one) time each day Active Active Problems Problem Noted Date Diagnosed Date Hyperlipidemia 04/19/2022 Essential hypertension 04/19/2022 Personal history of kidney stones 04/19/2022 Social History Tobacco Use Types Packs/Day Years Used Date Smoking Tobacco: Every Day Cigarettes 0.5 30 Smokeless Tobacco: Never Tobacco Cessation:Ready to Q uit: Not Asked; Counseling Given: Not Answered Sex and Gender Information Value Date Recorded Sex Assigned at Not on file Gender Identity Not on file Sexual Orientation Not on file Last Filed Vital Signs Vital Sign Reading Time Taken Comments Blood Pressure 169/110 01/25/2023 3:[address] MAGISTRATE Pulse 78 01/25/2023 3:[address] MAGISTRATE Temperature - - Respiratory Rate - - Oxygen Saturation - - Inhaled Oxygen Concentration - - Weight 118 kg (260 lb) 01/25/2023 3:[address] MAGISTRATE Height 167.6 cm (5' 6 ) 01/25/2023 3:[address] MAGISTRATE Body Mass Index 41.97 01/25/2023 3:[address] MAGISTRATE Plan of Treatment Health Maintenance Due Date Last Done Comments Pneumococcal PPSV23 Highest Risk Adult (1 of 3 - PCV13 ) 05/25/1994 Influenza Vaccine (#1) 2023 Care Teams Homogenizer Operator Relationship Specialty Start Date End [place] [address] PCP - General Family Medicine 04/17/22
--- NOTE | 2024-04-30 06:25 | PC.NURSE ---
XRAY AT THE BEDSIDE
[2024-04-30 06:42] LABS: Basophils Absolute Auto 0.05 K/mm3 (0.00-0.10); Basophils Percent Auto 0.4 % (0.0-1.0); Eosinophils Absolute Auto 0.22 K/mm3 (0.02-0.50); Eosinophils Percent Auto 1.9 % (1.0-6.0); Hematocrit 51.2 % (40.0-54.0); Hemoglobin 17.2 g/dL (14.0-18.0); Immature Granulocyte Absolute 0.07 K/mm3 (0.00-0.00); Immature Granulocyte Percent A 0.6 % (0.0-0.0); Lymphocytes Absolute Auto 2.88 K/mm3 (1.10-4.50); Lymphocytes Percent Auto 24.5 % (18.0-42.0); Mean Corpuscular HGB Conc 33.6 g/dL (32-36); Mean Corpuscular Hemoglobin 30.8 pg (27.0-31.0); Mean Corpuscular Volume 91.8 fL (78.0-102.0); Mean Platelet Volume 9.7 fl (8.7-11.0); Monocytes Absolute Auto 0.71 K/mm3 (0.10-0.90); Neutrophils Absolute Auto 7.81 K/mm3 (1.70-7.20); Neutrophils Percent Auto 66.6 % (50.0-70.0); Platelet Count Result 290 K/mm3 (150-420); Red Blood Count 5.58 M/mm3 (4.70-6.10); Red Cell Distribution Width 12.3 % (11.6-14.4); White Blood Count 11.7 K/mm3 (4.8-10.8)
--- NOTE | 2024-04-30 06:47 | ED_ITS ---
HPI - General Adult General Chief complaint: Upper Respiratory Infection <Earnest Hayes DO - Last Filed: 04/30/24 07:01> Stated complaint: Cold Chills <Earnest Hayes DO - Last Filed: 04/30/24 07:01> Time Seen by Provider: 04/30/24 07:13 <Earnest Hayes DO - Last Filed: 04/30/24 07:01> History of Present Illness HPI narrative: Bereket is a 48M with a PMH of HTN and HLD that presented to the ED with just over a day of cough, fevers up to 101, aches, fatigue and chills. NO CP, syncope reported. He has been exposed to Flu at work. <Earnest Hayes DO - Last Filed: 04/30/24 07:01> Related Data Home medications: Home Medications ?Medication ?Instructions ?Recorded ?Confirmed ?Last Taken ?Type rosuvastatin 10 mg tablet 10 mg PO DAILY 11/03/21 01/12/23 Unknown History valsartan 80 1 tablet PO DAILY 11/03/21 01/12/23 Unknown History mg-hydrochlorothiazide 12.5 mg tablet <Earnest Hayes DO - Last Filed: 04/30/24 07:01> Allergies/adverse reactions: Allergies Allergy/AdvReac Type Severity Reaction Status Date / Time No Known Allergies Allergy Verified 01/12/23 08:22 <Earnest Hayes DO - Last Filed: 04/30/24 07:01> Review of Systems 2 Review of Systems: All systems reviewed & are unremarkable except as noted in HPI and below <Earnest Hayes DO - Last Filed: 04/30/24 07:01> [facility] Past Medical History Medical History: Medical History (Updated 04/30/24 @ 07:23 by Edgardo Gómez MD) HLD (hyperlipidemia) <Earnest Hayes DO - Last Filed: 04/30/24 07:01> Family History Family History: Family History Mother Family history of type 2 diabetes mellitus <Earnest Hayes DO - Last Filed: 04/30/24 07:01> Social History Social History: Social History Smoking status: Never smoker <Earnest Hayes, DO - Last Filed: 04/30/24 07:01> Exam 2 Const: General: cooperative, healthy appearing, comfortable, no acute distress, well developed, alert, awake and Physically active <Earnest Hayes DO - Last Filed: 04/30/24 07:01> Orientation/consciousness: oriented to person, oriented to place and oriented to time <Earnest Hayes, DO - Last Filed: 04/30/24 07:01> HENMT: Head: normal to inspection, normocephalic and atraumatic <Earnest Hayes, DO - Last Filed: 04/30/24 07:01> Ears: hearing grossly normal bilaterally and external ears normal <Earnest Hayes, DO - Last Filed: 04/30/24 07:01> Face/Nose/Sinus: Normal external nose present <Earnest Hayes, DO - Last Filed: 04/30/24 07:01> Eyes: General: appearance normal, both eyes and all related structures < Earnest Hayes, DO - Last Filed: 04/30/24 07:01> Periorbital: periorbital findings normal <Earnest Hayes, DO - Last Filed: 04/30/24 07:01> Sclera: sclerae normal <Earnest Hayes DO - Last Filed: 04/30/24 07:01> Pupils: Equal, round and reactive pupils present <Earnest Hayes, DO - Last Filed: 04/30/24 07:01> Neck: Neck: normal visual inspection <Earnest Hayes, DO - Last Filed: 04/30/24 07:01> Chest: Chest palpation & inspection: normal inspection of the chest <Earnest Hayes, DO - Last Filed: 04/30/24 07:01> Resp: Effort & Inspection: normal respiratory effort, able to speak in complete sentences and no respiratory distress <Earnest Hayes, DO - Last Filed: 04/30/24 07:01> Auscultation: clear to auscultation bilaterally <Earnest Hayes DO - Last Filed: 04/30/24 07:01> Cardio: Jugular venous distension: no JVD <Earnest Hayes DO - Last Filed: 04/30/24 07:01> Rate: regular rate <Earnest Hayes DO - Last Filed: 04/30/24 07:01> Rhythm: regular rhythm <Earnest Hayes DO - Last Filed: 04/30/24 07:01> GI: Inspection: normal to inspection <Earnest Hayes DO - Last Filed: 04/30/24 07:01> GI Palp: Yes Soft to palpation <Earnest Hayes DO - Last Filed: 04/30/24 07:01> Auscultation: normal bowel sounds <Earnest Hayes DO - Last Filed: 04/30/24 07:01> Skin: General skin exam: normal color and no rashes or lesions noted <Earnest Hayes DO - Last Filed: 04/30/24 07:01> Neuro: General: oriented to person, oriented to place and oriented to time <Earnest Hayes DO - Last Filed: 04/30/24 07:01> Cranial nerves: Yes Equal, round and reactive pupils present <Earnest Hayes DO - Last Filed: 04/30/24 07:01> Extrem: General: normal to inspection <Earnest Hyaes DO - Last Filed: 04/30/24 07:01> Course Course Emergency Course: Ordered viral swabs, CXR and labs. He took ibuprofen 1 hour ago. Portable chest x-ray Comparison: 05/23/2014 Clinical History: Cough, chest congestion Findings: Lungs are clear, without focal consolidation or pleural effusion. Cardiomediastinal silhouette is stable. Bones and soft tissues are unremarkable. Impression: Clear lungs. <Earnest Hayes DO - Last Filed: 04/30/24 07:01> Ordered viral swabs, CXR and labs. He took ibuprofen 1 hour ago. Portable chest x-ray Comparison: 05/23/2014 Clinical History: Cough, chest congestion Findings: Lungs are clear, without focal consolidation or pleural effusion. Cardiomediastinal silhouette is stable. Bones and soft tissues are unremarkable. Impression: Clear lungs. Took over care of this patient at 7:00 a.m.. Patient had blood work which revealed a white cell count of 11.7. rest of the blood work is unremarkable. Patient tested negative for RSV / influenza / COVID. Chest x-ray did not show any acute findings. His symptoms appear to be secondary to viral infection/ upper respiratory tract infection /Bronchitis( patient is a smoker) will treat with Zithromax. <Edgardo Gómez MD - Last Filed: 04/30/24 07:25> Vital Signs Vital signs: Vital Signs Temperature 36.4 C L 04/30/24 06:14 Pulse Rate 103 H 04/30/24 06:14 Respiratory Rate 18 04/30/24 06:14 Blood Pressure 146/99 H 04/30/24 06:14 Pulse Oximetry 97 04/30/24 06:14 Oxygen Delivery Room Air 04/30/24 06:14 Temperature 36.4 C L 04/30/24 06:14 Pulse Rate 103 H 04/30/24 06:14 Respiratory Rate 18 04/30/24 06:14 Blood Pressure 146/99 H 04/30/24 06:14 Pulse Oximetry 97 04/30/24 06:14 Oxygen Delivery Room Air 04/30/24 06:14 <Earnest Hayes DO - Last Filed: 04/30/24 07:01> Vital Signs Temperature 36.4 C L 04/30/24 06:14 Pulse Rate 103 H 04/30/24 06:14 Respiratory Rate 18 04/30/24 06:14 Blood Pressure 146/99 H 04/30/24 06:14 Pulse Oximetry 97 04/30/24 06:14 Oxygen Delivery Room Air 04/30/24 06:14 Temperature 36.4 C L 04/30/24 06:14 Pulse Rate 103 H 04/30/24 06:14 Respiratory Rate 18 04/30/24 06:14 Blood Pressure 146/99 H 04/30/24 06:14 Pulse Oximetry 97 04/30/24 06:14 Oxygen Delivery Room Air 04/30/24 06:14 <Edgardo Gómez MD - Last Filed: 04/30/24 07:25> Medical Decision Making MDM Narrative Medical decision making narrative: Upper respiratory tract infection acute bronchitis <Edgardo Gómez MD - Last Filed: 04/30/24 07:25> Differential Diagnosis Differential Diagnosis: pneumonia, COVID <Edgardo Gómez MD - Last Filed: 04/30/24 07:25> Vital Signs Vital Signs: Vital Signs Temperature 36.4 C L 04/30/24 06:14 Pulse Rate 103 H 04/30/24 06:14 Respiratory Rate 18 04/30/24 06:14 Blood Pressure 146/99 H 04/30/24 06:14 Pulse Oximetry 97 04/30/24 06:14 Oxygen Delivery Room Air 04/30/24 06:14 Temperature 36.4 C L 04/30/24 06:14 Pulse Rate 103 H 04/30/24 06:14 Respiratory Rate 18 04/30/24 06:14 Blood Pressure 146/99 H 04/30/24 06:14 Pulse Oximetry 97 04/30/24 06:14 Oxygen Delivery Room Air 04/30/24 06:14 <Earnest Hayes DO - Last Filed: 04/30/24 07:01> Vital Signs Temperature 36.4 C L 04/30/24 06:14 Pulse Rate 103 H 04/30/24 06:14 Respiratory Rate 18 04/30/24 06:14 Blood Pressure 146/99 H 04/30/24 06:14 Pulse Oximetry 97 04/30/24 06:14 Oxygen Delivery Room Air 04/30/24 06:14 Temperature 36.4 C L 04/30/24 06:14 Pulse Rate 103 H 04/30/24 06:14 Respiratory Rate 18 04/30/24 06:14 Blood Pressure 146/99 H 04/30/24 06:14 Pulse Oximetry 97 04/30/24 06:14 Oxygen Delivery Room Air 04/30/24 06:14 <Edgardo Gómez MD - Last Filed: 04/30/24 07:25> Lab Data Result diagrams: 04/30/24 06:37 04/30/24 06:37 <Earnest Hayes DO - Last Filed: 04/30/24 07:01> Labs: Lab Results 04/30/24 04/30/24 Range/Units 06:17 06:37 WBC 11.7 H (4.8-10.8) K/mm3 RBC 5.58 (4.70-6.10) M/mm3 Hgb 17.2 (14.0-18.0) g/dL Hct 51.2 (40.0-54.0) % MCV 91.8 (78.0-102.0) fL MCH 30.8 (27.0-31.0) pg MCHC 33.6 (32-36) g/dL RDW 12.3 (11.6-14.4) % Plt Count 290 (150-420) K/mm3 MPV 9.7 (8.7-11.0) fl Immature Gran % (Auto) 0.6 H (0.0-0.0) % Neut % (Auto) 66.6 (50.0-70.0) % Lymph % (Auto) 24.5 (18.0-42.0) % Howard % (Auto) 6.0 (2.0-11.0) % Eos % (Auto) 1.9 (1.0-6.0) % Baso % (Auto) 0.4 (0.0-1.0) % Lymph # (Auto) 2.88 (1.10-4.50) K/mm3 Howard # (Auto) 0.71 (0.10-0.90) K/mm3 Eos # (Auto) 0.22 (0.02-0.50) K/mm3 Baso # (Auto) 0.05 (0.00-0.10) K/mm3 Abs Immat Gran (auto) 0.07 H (0.00-0.00) K/mm3 Absolute Neuts (auto) 7.81 H (1.70-7.20) K/mm3 Absolute Nucleated RBC 0.00 (0.00-0.00) K/mm3 Nucleated RBC % 0.0 (0-0.0) % Sodium 139 (136-145) mmol/L Potassium 3.8 (3.5-5.1) mmol/L Chloride 102 (98-108) mmol/L Carbon Dioxide 25 (21-32) mmol/L Anion Gap 12 (4-12) mmol/L BUN 14 (7-18) mg/dL Creatinine 1.10 (0.70-1.30) mg/dL Estim Creat Clear Calc 82 ml/min Estimated GFR > 60 (59 - ) Glucose 131 H (70-99) mg/dL Calculated Osmolality 290 (285-295) mOsm/kg Calcium 9.1 (8.5-10.1) mg/dL Total Bilirubin 0.9 (0.00-1.00) mg/dL AST 14 L (15-37) U/L ALT 26 (16-63) U/L Alkaline Phosphatase 93 (46-116) U/L Total Protein 8.0 (6.4-8.2) g/dL Albumin 4.2 (3.4-5.0) g/dL Influenza A (RT-PCR) Negative (Negative) Influenza B (RT-PCR) Negative (Negative) RSV (RT-PCR) Negative (Negative) SARS-CoV-2 RNA (RT-PCR) Negative (Negative) <Earnest Hayes, DO - Last Filed: 04/30/24 07:01> Lab Results 04/30/24 04/30/24 Range/Units 06:17 06:37 WBC 11.7 H (4.8-10.8) K/mm3 RBC 5.58 (4.70-6.10) M/mm3 Hgb 17.2 (14.0-18.0) g/dL Hct 51.2 (40.0-54.0) % MCV 91.8 (78.0-102.0) fL MCH 30.8 (27.0-31.0) pg MCHC 33.6 (32-36) g/dL RDW 12.3 (11.6-14.4) % Plt Count 290 (150-420) K/mm3 MPV 9.7 (8.7-11.0) fl Immature Gran % (Auto) 0.6 H (0.0-0.0) % Neut % (Auto) 66.6 (50.0-70.0) % Lymph % (Auto) 24.5 (18.0-42.0) % Howard % (Auto) 6.0 (2.0-11.0) % Eos % (Auto) 1.9 (1.0-6.0) % Baso % (Auto) 0.4 (0.0-1.0) % Lymph # (Auto) 2.88 (1.10-4.50) K/mm3 Howard # (Auto) 0.71 (0.10-0.90) K/mm3 Eos # (Auto) 0.22 (0.02-0.50) K/mm3 Baso # (Auto) 0.05 (0.00-0.10) K/mm3 Abs Immat Gran (auto) 0.07 H (0.00-0.00) K/mm3 Absolute Neuts (auto) 7.81 H (1.70-7.20) K/mm3 Absolute Nucleated RBC 0.00 (0.00-0.00) K/mm3 Nucleated RBC % 0.0 (0-0.0) % Sodium 139 (136-145) mmol/L Potassium 3.8 (3.5-5.1) mmol/L Chloride 102 (98-108) mmol/L Carbon Dioxide 25 (21-32) mmol/L Anion Gap 12 (4-12) mmol/L BUN 14 (7-18) mg/dL Creatinine 1.10 (0.70-1.30) mg/dL Estim Creat Clear Calc 82 ml/min Estimated GFR > 60 (59 - ) Glucose 131 H (70-99) mg/dL Calculated Osmolality 290 (285-295) mOsm/kg Calcium 9.1 (8.5-10.1) mg/dL Total Bilirubin 0.9 (0.00-1.00) mg/dL AST 14 L (15-37) U/L ALT 26 (16-63) U/L Alkaline Phosphatase 93 (46-116) U/L Total Protein 8.0 (6.4-8.2) g/dL Albumin 4.2 (3.4-5.0) g/dL Influenza A (RT-PCR) Negative (Negative) Influenza B (RT-PCR) Negative (Negative) RSV (RT-PCR) Negative (Negative) SARS-CoV-2 RNA (RT-PCR) Negative (Negative) <Edgardo Gómez MD - Last Filed: 04/30/24 07:25> Discharge Plan Discharge Clinical Impression: Upper respiratory infection, Bronchitis <Earnest Hayes DO - Last Filed: 04/30/24 07:01> Patient Disposition: Home, Self-Care <Earnest Hayes DO - Last Filed: 04/30/24 07:01> Condition: Stable <Earnest Hayes DO - Last Filed: 04/30/24 07:01> Instructions: Antibiotic Form, Upper Respiratory Infection (ED), Acute Bronchitis (ED) <DO Mayte Cheung Last Filed: 04/30/24 07:01> Patient Language: German <Earnest Hayes DO - Last Filed: 04/30/24 07:01> Prescriptions: New azithromycin [Zithromax] 250 mg tablet See Rx Instructions .ROUTE .COMPLEX Qty: 6 0RF Rx Instructions: For 250 mg dose pack: take 500 mg today (day 1), then 250 mg for 4 days (days 2-5) No Action valsartan-hydrochlorothiazide 80-12.5 mg tablet 1 tablet PO DAILY rosuvastatin 10 mg tablet 10 mg PO DAILY ondansetron 4 mg tablet,disintegrating 4 mg PO Q6H PRN (Reason: nausea and vomiting) Qty: 20 0RF valsartan-hydrochlorothiazide [Diovan HCT] 80-12.5 mg tablet 1 tablet PO DAILY Qty: 30 0RF <Earnest Hayes DO - Last Filed: 04/30/24 07:01> Follow-up/Referrals: Racheal Brizuela MD [Primary Care Provider] - <Earnest Hayes DO - Last Filed: 04/30/24 07:01> Stand Alone Forms: Work/School Release IP <Earnest Hayes DO - Last Filed: 04/30/24 07:01> Time of Disposition: 07:25 <Earnest Hayes DO - Last Filed: 04/30/24 07:01> 07:25 <Edgardo Gómez MD - Last Filed: 04/30/24 07:25>
[2024-04-30 06:57] LABS: Alanine Aminotransferase 26 U/L (16-63); Albumin Level 4.2 g/dL (3.4-5.0); Alkaline Phosphatase 93 U/L (46-116); Anion Gap 12 mmol/L (4-12); Aspartate Amino Transferase 14 U/L (15-37); Bilirubin,Total 0.9 mg/dL (0.00-1.00); Blood Urea Nitrogen 14 mg/dL (7-18); Calcium 9.1 mg/dL (8.5-10.1); Carbon Dioxide 25 mmol/L (21-32); Chloride 102 mmol/L (98-108); Estimated CRCL calculation 82 ml/min; Estimated Glomerular Filt Rate > 60; Glucose 131 mg/dL (70-99); Osmolality Calculated 290 mOsm/kg (285-295); Potassium 3.8 mmol/L (3.5-5.1); Sodium 139 mmol/L (136-145)
[2024-04-30 06:58] LABS: Influenza A QL RT-PCR Negative (Negative); Influenza B QL RT-PCR Negative (Negative); RSV RNA, RT-PCR Negative (Negative); SARS-CoV-2 RNA PCR Negative (Negative)
[2024-04-30 07:43] VITALS: BP 142/88; PULSE 98; RESP 18; O2SAT 99
== END 2024-04-30 07:43 | disposition home or self-care (01) ==
PROVIDERS: Family Medicine; Emergency Provider Internal Medicine Critical Care Medicine; PCP Internal Medicine
DX: J06.9 Acute upper respiratory infection, unspecified (principal); J40 Bronchitis, not specified as acute or chronic; Z20.822 Contact with and (suspected) exposure to COVID-19
CPT/HCPCS: 36415; 71045; 80053; 85025; 87637; 99283